=== PATIENT | female | born 1990 | race Caucasian/White ===

== ENCOUNTER 2024-07-02 19:19 | Observation (INO) | payer BC ==
[~2024-07-02] VITALS: Ht 160 cm; Wt 68.0 kg
[2024-07-02] MEDS ORDERED: Methotrexate Sod 25MG / ML 2ML Vial IM ONE (22:25)
[2024-07-03 00:22] VITALS: BP 110/74
[2024-07-03] MEDS ORDERED: Ketorolac Tromethamine 30mg Vial IV PRN (00:55)
[2024-07-03] MEDS ORDERED: OxyCODONE 5 mg/Acetamin 325 mg TABLET PO PRN (00:55)
[2024-07-03] MEDS ORDERED: Ondansetron HCl 2 MG / ML 2ML Vial IV PRN (00:55)
[2024-07-03] MEDS ORDERED: DiphenhydrAMINE HCl 50 MG/ML 1ML Vial IV PRN (00:55)
[2024-07-03] MEDS ORDERED: NS 1,000 ML IV SCH (01:00)
--- NOTE | 2024-07-03 04:57 | NUR ---
PATIENT COMES IN TONIGHT FOR ECTOPIC . PAIN HAS BEEN UNDER CONTROL BLEEDING HAS BEEN MINAMAL UP AND VOIDING. SMALL AMOUNT OF BLOOD NOTICED IN URINAL HAT. PLAN FOR OVERNIGHT STAY TO WATCH FOR HEMORRAGIC BLEEDING. CONTINUE CARE
[2024-07-03 05:14] VITALS: BP 95/68
[2024-07-03 05:56] LABS: BASOPHILS ABSOLUTE AUTO 0.03 K/mm3 (0.00-0.23); BASOPHILS PERCENT AUTO 1 % (0-2); EOSINOPHILS ABSOLUTE AUTO 0.11 K/mm3 (0.00-0.68); EOSINOPHILS PERCENT AUTO 2 % (0-6); Hematocrit 24.8 % (33.0-51.0); Hemoglobin 8.2 g/dL (11.5-16.0); IMMATURE GRAN ABSOLUTE AUTO 0.03 K/mm3 (0.00-0.10); IMMATURE GRAN PERCENT AUTO 1 % (0-1); LYMPHOCYTES ABSOLUTE AUTO 1.24 K/mm3 (0.84-5.20); LYMPHOCYTES PERCENT AUTO 21 % (21-46); MONOCYTES ABSOLUTE AUTO 0.45 K/mm3 (0.16-1.47); MONOCYTES PERCENT AUTO 8 % (4-13); Mean Corpuscular HGB Conc 33.1 g/dL (31.5-36.5); Mean Corpuscular Volume 91 fL (80-100); Mean Platelet Volume 9.4 fL (9.1-12.4); NEUTROPHILS ABSOLUTE AUTO 4.02 K/mm3 (1.96-9.15); NEUTROPHILS PERCENT AUTO 68 % (41-73); Platelet Count 238 K/mm3 (150-400); RDW Coefficient Variation 14.6 % (11.7-14.2); RDW Standard Deviation 47.5 fL (35.1-46.3); Red Blood Cell Count 2.73 M/mm3 (3.80-5.20); White Blood Cell Count 5.88 K/mm3 (4.00-11.30)
[2024-07-03 06:59] LABS: Albumin, Blood 3.3 g/dL (3.4-5.0); Albumin/Globulin Ratio 1.2 (0.8-1.8); Bilirubin, Total 0.4 mg/dL (0.1-1.0); Bun/Creatinine Ratio 9.1 (12.0-20.0); Calcium, Blood 8.2 mg/dL (8.5-10.1); Creatinine, Blood 0.66 mg/dL (0.40-1.00); Globulin, Blood 2.8 g/dL (2.2-4.0); Total Protein, Blood 6.1 g/dL (6.4-8.2)
[2024-07-03 07:24] VITALS: BP 98/65
--- NOTE | 2024-07-03 09:59 | NUR ---
A&OX4, DENIES ANY PAIN, REPORTS VAGINAL BLEEDING IS "BETTER" AND MINIMAL, DENIES ANY DIZZINESS, AMBULATING TO THE BATHROOM WITHOUT DIFFICULTY, CONT. TO MONITOR FOR ANY CHANGES.
--- NOTE | 2024-07-03 13:21 | NUR ---
DC'D HOME, DC INSTRUCTIONS GIVEN, VERBALIZED UNDERSTANDING, PT TOOK BELONGINGS HOME.
== END 2024-07-03 13:21 | disposition home or self-care (01) ==
LOC: ER 19:19 → SURS 19:20 → ERHOLD 19:20 → SURS 07-03 00:16
PROVIDERS: ADMIT Obstetrics & Gynecology
DX: O00.80 Other ectopic pregnancy without intrauterine pregnancy (principal); Z88.2 Allergy status to sulfonamides
CPT/HCPCS: 36415; 80053; 84702; 85025; 86850; 86900; 86901; 96372; 96374; 99285-25; G0378; J1885; J7030; J9260

== ENCOUNTER → 2024-07-02 | Outpatient (CLI) | payer BC ==
[2024-07-02 18:08] LABS: BASOPHILS ABSOLUTE AUTO 0.02 K/mm3 (0.00-0.23); BASOPHILS PERCENT AUTO 0 % (0-2); EOSINOPHILS PERCENT AUTO 2 % (0-6); Hematocrit 28.2 % (33.0-51.0); Hemoglobin 9.3 g/dL (11.5-16.0); IMMATURE GRAN ABSOLUTE AUTO 0.03 K/mm3 (0.00-0.10); IMMATURE GRAN PERCENT AUTO 0 % (0-1); LYMPHOCYTES ABSOLUTE AUTO 1.36 K/mm3 (0.84-5.20); LYMPHOCYTES PERCENT AUTO 20 % (21-46); MONOCYTES ABSOLUTE AUTO 0.33 K/mm3 (0.16-1.47); MONOCYTES PERCENT AUTO 5 % (4-13); Mean Corpuscular HGB 29.7 pg (26.0-34.0); Mean Corpuscular Volume 90 fL (80-100); Mean Platelet Volume 9.3 fL (9.1-12.4); NEUTROPHILS ABSOLUTE AUTO 4.97 K/mm3 (1.96-9.15); NEUTROPHILS PERCENT AUTO 73 % (41-73); Platelet Count 272 K/mm3 (150-400); RDW Coefficient Variation 14.8 % (11.7-14.2); RDW Standard Deviation 46.9 fL (35.1-46.3); Red Blood Cell Count 3.13 M/mm3 (3.80-5.20); White Blood Cell Count 6.81 K/mm3 (4.00-11.30)
== END ==
LOC: LAB SHORT 17:57 → LAB 17:57
PROVIDERS: Family Medicine
DX: O20.0 Threatened abortion (principal)
CPT/HCPCS: 84702; 85025

== ENCOUNTER → 2025-03-25 | Outpatient (CLI) | payer BC | LOC: LAB 12:47 → LAB SHORT 12:47 | DX: N93.9 Abnormal uterine and vaginal bleeding, unspecified (principal) | CPT/HCPCS: 84702 ==